=== PATIENT | male | born 1945 | race Caucasian/White ===

== ENCOUNTER 2016-06-02 11:13 | Emergency (ER) | payer OTHER, MEDICARE ==
[~2016-06-02] VITALS: Ht 180.3 cm; Wt 111.8 kg
[2016-06-02 11:18] VITALS: BP 148/80; PULSE 75; RESP 20; O2SAT 96
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
== END 2016-06-02 12:31 | disposition home or self-care (01) ==
LOC: SED 11:13
DX: R31.9 Hematuria, unspecified (principal); S70.12XA Contusion of left thigh, initial encounter; I48.91 Unspecified atrial fibrillation; V43.52XA Car driver injured in collision with other type car in traffic accident, initial encounter; Y93.89 Activity, other specified; Y99.8 Other external cause status; Y92.410 Unspecified street and highway as the place of occurrence of the external cause; Z79.01 Long term (current) use of anticoagulants